=== PATIENT | male | born 1955 | race Caucasian/White ===

== ENCOUNTER 2017-12-04 21:19 | Emergency (ER) | payer BC ==
[2017-12-04] MEDS ORDERED: Albuterol 8 GM Inhaler INH ONE (22:40)
[2017-12-04] MEDS ORDERED: Azithromycin 250 MG Tab ONE (22:40)
--- NOTE | 2017-12-05 04:49 | ER ---
HISTORY OF PRESENT ILLNESS: The patient is a 62-year-old male who comes into the ER with a chief complaint of generally not feeling well. He notes he has a head cold. He has a headache. He has neck pain. He has body aches. He notes he has had a fever off and on. He has had some weight loss, some night sweats. He has a cough. Cough is nonproductive. He does note some shortness of breath. He does not have any chest pain. His pain, he describes as a 3-4/10. ALLERGIES: BACTRIM. CURRENT MEDICATIONS: None. PHYSICAL EXAMINATION: VITAL SIGNS: His temperature is 98.6, pulse is 86, respirations are 16, blood pressure is 122/80, O2 saturation is 98% on room air. HEENT: TMs appear to have a perforation on the right. The left appears normal. Throat is normal. NECK: Supple. No nodes. No bruits. HEART: Regular sinus rhythm without murmur. LUNGS: The patient has a nearly absent breath sounds bilaterally. No wheezing. No crackles. Really nothing for breath sounds. ABDOMEN: Soft, nontender. No hepatosplenomegaly. Normal breath. Normal bowel sounds. EXTREMITIES: No clubbing, cyanosis, or edema. NEUROLOGIC: Nonfocal. LABS: White count is 14.8, red blood cells are 4.06, hematocrit is a little low at 36.8, neutrophils are 75%. Sodium is 134. The remainder of his electrolytes are within normal limits. His BUN is 17, creatinine is 1.33. Liver functions are a little low. His AST is 23, his ALT is 22, alkaline phosphatase is 140, albumin is 2.9, globulin is 4.4. UA is negative, specific gravity is 1.005. ASSESSMENT: Possible bronchitis versus a viral illness. PLAN: We will put the patient on some azithromycin 500 mg p.o. daily. I have also given him a Ventolin metered dose inhaler for what appears to be an emphysematous lungs, I have reviewed how to use it. The patient will take it with him and if it is helpful, he will come back and be seen in the clinic for refill. I have encouraged him to return to clinic if he is not getting better over the next several days, or if he develops any worsening symptoms. Chest x-ray was also obtained, which was negative for any acute process. RD/MODL /[id number]
--- NOTE | 2017-12-05 08:36 | CR ---
DATE OF SERVICE: 12/04/17 CLINICAL DATA: cough,sob PA AND LATERAL CHEST: Comparison is made to a prior exam dated 09/25/09. The heart size is normal. The lungs are hyperexpanded. There are foci of increased density in the left retrocardiac region and right lung base laterally consistent with infiltrate or atelectasis. Pneumonia should be considered. A density in the right lung base laterally does appear to be somewhat mass-like. Followup PA and lateral chest x -ray after treatment is recommended to confirm stability. No pneumothorax. No pleural effusions. [id number] MTDD
--- NOTE | 2018-01-14 15:57 | ER ---
ADDENDUM: FINAL DIAGNOSIS: Bronchitis. RD/MODL /[id number]
== END 2017-12-04 22:55 | disposition home or self-care (01) ==
LOC: LB.ED 21:19
DX: J40 Bronchitis, not specified as acute or chronic (principal); Z88.1 Allergy status to other antibiotic agents
CPT/HCPCS: 36415; 71046; 80053; 81001; 85025; 99283; A9270

== ENCOUNTER 2017-12-10 15:58 | Emergency (ER) | payer BC ==
--- NOTE | 2017-12-10 16:32 | EDM.PDOC ---
ED HPI GENERAL MEDICAL PROBLEM - General Stated Complaint: DIZZINESS, FAINTING Time Seen by Provider: 12/10/17 16:05 Source of Information: Reports: Patient History Limitations: Reports: No Limitations - History of Present Illness INITIAL COMMENTS - FREE TEXT/NARRATIVE: According to patient he was at work today and was standing, when he felt weak and dizzy, soon started to have blurring of his vision. So patient sat down on the chair and the feeling went away.The whole episodes lasted for few minutes. No LOC or confusion.No nausea or vomiting. no chest pain or shortness of breath. Pt was seen for cough last week and was started on azithromycin 500mg daily for 3 days. Pt was done with his antibiotics on Tuesday. no fever or chills. no abdominal pain. no other symptoms. Onset: Today Onset Date: 12/10/17 Onset Time: 15:30 Severity: Mild - Related Data Allergies Allergy/AdvReac Type Severity Reaction Status Date / Time sulfamethoxazole Allergy Cannot Verified 12/04/17 21:33 [From Bactrim] Remember trimethoprim [From Bactrim] Allergy Cannot Verified 12/04/17 21:33 Remember Home Meds: Home Meds NK [No Known Home Meds] 12/04/17 [History] Past Medical History HEENT History: Reports: Impaired Vision Cardiovascular History: Reports: Arrhythmia, Other (See Below) Other Cardiovascular History: Reports past Hx of PVC's. - Infectious Disease History Infectious Disease History: Reports: Chicken Pox Social & Family History - Family History Family Medical History: Noncontributory - Caffeine Use Caffeine Use: Reports: Coffee ED ROS GENERAL - Review of Systems Review Of Systems: See Below Constitutional: Reports: Weakness. Denies: Fever, Chills, Fatigue, Night Sweats , Diaphoresis, Decreased Appetite HEENT: Denies: Eye Pain, Rhinitis, Sinus Problem, Throat Pain, Throat Swelling Respiratory: Denies: Shortness of Breath, Wheezing, Cough, Sputum Cardiovascular: Reports: Lightheadedness. Denies: Chest Pain, Syncope GI/Abdominal: Denies: Abdominal Pain, Nausea, Vomiting Musculoskeletal: Denies: Joint Pain, Joint Swelling Skin: Denies: Bruising, Pruritis, Rash Neurological: Reports: Dizziness. Denies: Confusion, Headache, Numbness, Seizure, Syncope, Tingling, Tremors, Weakness ED EXAM, GENERAL - Physical Exam Exam: See Below Exam Limited By: No Limitations General Appearance: Alert, WD/WN, No Apparent Distress Eye Exam: Bilateral Eye: EOMI, PERRL Ears: Normal External Exam, Normal Canal, Hearing Grossly Normal, Normal TMs Ear Exam: Bilateral Ear: Auricle Normal, Canal Normal, TM normal Nose: Normal Inspection, Normal Mucosa, No Blood Throat/Mouth: Normal Inspection, Normal Lips, Normal Teeth, Normal Gums, Normal Oropharynx, Normal Voice, No Airway Compromise Head: Atraumatic, Normocephalic Neck: Normal Inspection, Supple, Non-Tender, Full Range of Motion Respiratory/Chest: No Respiratory Distress, Lungs Clear, Normal Breath Sounds, No Accessory Muscle Use, Chest Non-Tender Cardiovascular: Normal Peripheral Pulses, Regular Rate, Rhythm, No Edema, No Gallop, No JVD, No Murmur, No Rub GI/Abdominal: Normal Bowel Sounds, Soft, Non-Tender, No Organomegaly, No Distention, No Abnormal Bruit, No Mass Extremities: Normal Inspection, Normal Range of Motion, Non-Tender, Normal Capillary Refill, No Pedal Edema EKG INTERPRETATION EKG Date: 12/10/17 Rate (Beats/Min): 71 [place]: Normal P-Wave: Present QRS: Normal ST-T: Normal QT: Prolonged EKG Interpretation Comments: occasional PVCs. Course - Vital Signs Text/Narrative:: Pt's description of symptoms appear like he has a short episode of black out, which resolved with him sitting. the episode was not asso with sweating, chest pain, shortness of breath or palpitations. the whole episode lasted for few seconds. His EKG does show Prolonged AT interval which might be related to his recent use of azithromycin. His CBC, CMP are normal. His troponin is negative. Pt is asymptomatic. Pt reassured that he had nonspecific episode of vasovagal attack. all his lab work is normal. advised to drink plenty of fluids. Followup in clinic in 1 wk for recheck and repeat EKG. - Orders/Labs/Meds Orders: Active Orders 24 hr Category Date Time Status EKG Documentation Completion [RC] ASDIRECTED Care 12/10/17 16:22 Active Labs: Laboratory Tests 12/10/17 12/10/17 Range/Units 16:21 16:21 WBC 7.9 D (4.0-11.0) K/uL RBC 4.14 L (4.50-6.50) M/uL Hgb 13.2 (13.0-18.0) g/dL Hct 38.4 L (40.0-54.0) % MCV 93 (76-96) fL MCH 31.9 (27.0-32.0) pg MCHC 34.4 (31.0-35.0) g/dL RDW 13.8 (11.0-16.0) % Plt Count 340 (150-400) K/uL MPV 9.3 (6.0-10.0) fL Neut % (Auto) 69.5 (45.0-70.0) % Lymph % (Auto) 21.6 (20.0-40.0) % [place] % (Auto) 6.3 (3.0-10.0) % Eos % (Auto) 2.1 (1.0-5.0) % Baso % (Auto) 0.5 (0.0-0.5) % Neut # (Auto) 5.51 (2.00-7.50) K/uL Lymph # (Auto) 1.71 (1.50-4.00) K/uL [place] # (Auto) 0.50 (0.20-0.80) K/uL Eos # (Auto) 0.17 (0.04-0.40) K/uL Baso # (Auto) 0.04 (0.02-0.10) K/uL Sodium 135 L (136-145) mmol/L Potassium 3.9 (3.5-5.1) mmol/L Chloride 100 (98-107) mmol/L Carbon Dioxide 24.9 (21.0-32.0) mmol/L Anion Gap 14.0 (5.0-15.0) mmol/L BUN 13 D (8-26) mg/dL Creatinine 1.30 (0.70-1.30) mg/dL Est Cr Clr Drug Dosing TNP Estimated GFR (MDRD) 56 L (>60) MLS/MIN BUN/Creatinine Ratio 10.0 (6-25) Glucose 206 H D (74-100) mg/dL Calcium 8.8 (8.5-10.1) mg/dL Total Bilirubin 0.6 (0.0-1.0) mg/dL AST 15 (15-37) U/L ALT 20 (12-78) U/L Alkaline Phosphatase 111 (46-116) U/L Troponin I < 0.017 (0.000-0.060) ng/mL Total Protein 6.8 (6.4-8.2) g/dL Albumin 2.9 L (3.4-5.0) g/dL Globulin 3.9 (2.2-4.2) g/dL Albumin/Globulin Ratio 0.7 L (0.8-2.0) Departure - Departure Time of Disposition: 17:30 Disposition: Home, Self-Care 01 Condition: Good Clinical Impression: Vasovagal episode - Discharge Information Referrals: PCP,None [Primary Care Provider] - Additional Instructions: His CBC, CMP are normal. His troponin is negative. Pt is asymptomatic. Pt reassured that he had nonspecific episode of vasovagal attack. all his lab work is normal. advised to drink plenty of fluids. Followup in clinic in 1 wk for recheck and repeat EKG. - Problem List & Annotations (1) Vasovagal episode SNOMED Code(s): 532678921 Code(s): R55 - SYNCOPE AND COLLAPSE Status: Acute Current Visit: Yes - Problem List Review Problem List Initiated/Reviewed/Updated: Yes - My Orders Last 24 Hours: My Active Orders 12/10/17 16:22 EKG Documentation Completion [RC] ASDIRECTED - Assessment/Plan Last 24 Hours: My Active Orders 12/10/17 16:22 EKG Documentation Completion [RC] ASDIRECTED Assessment:: vasovagal episode Plan: Pt's description of symptoms appear like he has a short episode of black out, which resolved with him sitting. the episode was not asso with sweating, chest pain, shortness of breath or palpitations. the whole episode lasted for few seconds. His EKG does show Prolonged AT interval which might be related to his recent use of azithromycin. His CBC, CMP are normal. His troponin is negative. Pt is asymptomatic. Pt reassured that he had nonspecific episode of vasovagal attack. all his lab work is normal. advised to drink plenty of fluids. Followup in clinic in 1 wk for recheck and repeat EKG.
== END 2017-12-10 17:25 | disposition home or self-care (01) ==
LOC: LB.ED 15:58
DX: R55 Syncope and collapse (principal); Z88.2 Allergy status to sulfonamides; Z88.1 Allergy status to other antibiotic agents
CPT/HCPCS: 36415; 80053; 84484; 85025; 93005; 99284-25

== ENCOUNTER 2022-07-07 15:27 | Emergency (ER) | payer BC ==
[2022-07-07] MEDS: Sodium Chloride 0.9% 1,000 ML IV ONE (15:49)
[2022-07-07] MEDS: Sodium Chloride 0.9% 500 ML IV ONE (16:22)
[2022-07-07 16:24] VITALS: PULSE 88
[2022-07-07] MEDS: Sodium Chloride 0.9% 1,000 ML IV SCH (16:41)
[2022-07-07 19:20] VITALS: BP 125/70
== END 2022-07-07 18:50 | disposition home or self-care (01) ==
LOC: LB.ED 15:27
DX: R55 Syncope and collapse (principal); Z88.1 Allergy status to other antibiotic agents
CPT/HCPCS: 36415; 71045; 80053; 80307; 81001; 82947; 84484; 85025; 93242; 96360; 96361; 99285-25; A0425; A0429; J7030

== ENCOUNTER 2023-04-22 16:34 | Emergency (ER) | payer BC ==
[2023-04-22] MEDS ORDERED: Ketorolac 60 MG/2 ML SDV IM ONE (16:45)
[2023-04-22] MEDS ORDERED: Ketorolac 60 MG/2 ML SDV ONE (16:47)
[2023-04-22] MEDS ORDERED: Acetaminophen/HYDROcodone 325-5 MG Tab ONE (17:30)
== END 2023-04-22 17:45 | disposition home or self-care (01) ==
LOC: LB.ED 16:34
DX: S49.91XA Unspecified injury of right shoulder and upper arm, initial encounter (principal); S40.011A Contusion of right shoulder, initial encounter; J44.9 Chronic obstructive pulmonary disease, unspecified; Z88.2 Allergy status to sulfonamides; Z88.8 Allergy status to other drugs, medicaments and biological substances; W22.8XXA Striking against or struck by other objects, initial encounter
CPT/HCPCS: 73030-RT; 96372; 99283; A9270-GY; J1885

== ENCOUNTER 2023-07-06 15:38 | Emergency (ER) | payer BC ==
[2023-07-06] MEDS ORDERED: Diphtheria,Pertussis(Acell),Tetanus Vaccine 0.5 ML Syringe IM ONE (15:53)
[2023-07-06 16:06] LABS: BASOPHILS ABSOLUTE AUTO 0.05 K/uL (0.02-0.10); BASOPHILS PERCENT AUTO 0.6 % (0.0-0.5); EOSINOPHILS PERCENT AUTO 3.7 % (1.0-5.0); HEMATOCRIT 41.8 % (40.0-54.0); HEMOGLOBIN 14.3 g/dL (13.0-18.0); LYMPHOCYTES ABSOLUTE AUTO 2.76 K/uL (1.50-4.00); LYMPHOCYTES PERCENT AUTO 34.1 % (20.0-40.0); MEAN CORPUSCULAR HEMOGLOBIN 32.5 pg (27.0-32.0); MEAN CORPUSCULAR HGB CONC 34.2 g/dL (31.0-35.0); MEAN CORPUSCULAR VOLUME 95 fL (76-96); MEAN PLATELET VOLUME 9.7 fL (6.0-10.0); MONOCYTES ABSOLUTE AUTO 0.78 K/uL (0.20-0.80); MONOCYTES PERCENT AUTO 9.6 % (3.0-10.0); PLATELET COUNT,PLT 239 K/uL (150-400); RED CELL DISTRIBUTION WIDTH 13.1 % (11.0-16.0); WHITE BLOOD CELL COUNT,WBC 8.1 K/uL (4.0-11.0)
[2023-07-06 16:21] LABS: A/G RATIO 0.9 (0.8-2.0); ALBUMIN 3.3 g/dL (3.4-5.0); ANION GAP 14.3 mmol/L (5.0-15.0); BILIRUBIN TOTAL 0.5 mg/dL (0.0-1.0); BUN/CREATININE RATIO 12.2 (6-25); CALCIUM 8.5 mg/dL (8.5-10.1); CARBON DIOXIDE,CO2 24.6 mmol/L (21.0-32.0); CREATININE 1.31 mg/dL (0.70-1.30); EST CRCL DRUG DOSING (CG) 55.08 mL/min; POTASSIUM,K 3.9 mmol/L (3.5-5.1); PROTEIN TOTAL,TP 7.1 g/dL (6.4-8.2)
[2023-07-06] MEDS ORDERED: Lidocaine 1% with EPINEPHrine 1:100,000 50 ML MDV INFILT ONE (16:59)
[2023-07-06] MEDS ORDERED: Cephalexin 500 MG Cap ONE (17:00)
[2023-07-06] MEDS ORDERED: Bacitracin Oint 1 GM U/D Packet TOP ONE (17:00)
[2023-07-06] MEDS ORDERED: Lidocaine 1% with EPINEPHrine 1:100,000 20 ML MDV INJECT ONE (17:13)
== END 2023-07-06 17:05 | disposition home or self-care (01) ==
LOC: LB.ED 15:38
DX: S01.01XA Laceration without foreign body of scalp, initial encounter (principal); S01.81XA Laceration without foreign body of other part of head, initial encounter; F10.10 Alcohol abuse, uncomplicated; R55 Syncope and collapse; Z88.2 Allergy status to sulfonamides; J44.9 Chronic obstructive pulmonary disease, unspecified; X58.XXXA Exposure to other specified factors, initial encounter; Z23 Encounter for immunization
CPT/HCPCS: 12004; 36415; 80053; 80307; 83735; 85025; 90471; 90715; 93005; 99284-25; A9270-GY

== ENCOUNTER 2024-04-16 18:03 | Emergency (ER) | payer BC ==
[2024-04-16] MEDS ORDERED: Sodium Chloride 0.9% 10 ML Syringe FLUSH PRN (18:20)
[2024-04-16] MEDS: Iopamidol 612 MG/ML 100 ML Bottle IV SCH (18:38)
[2024-04-16] MEDS: Sodium Chloride 0.9% 50 ML SDV FLUSH ONE (18:38)
[2024-04-16 18:55] LABS: HEMATOCRIT 37.4 % (40.0-54.0); HEMOGLOBIN 13.3 g/dL (13.0-18.0); MEAN CORPUSCULAR HEMOGLOBIN 33.6 pg (27.0-32.0); MEAN CORPUSCULAR HGB CONC 35.6 g/dL (31.0-35.0); MEAN PLATELET VOLUME 9.2 fL (6.0-10.0); RED BLOOD CELL COUNT 3.96 M/uL (4.50-6.50); WHITE BLOOD CELL COUNT,WBC 5.9 K/uL (4.0-11.0)
[2024-04-16 19:13] LABS: ALBUMIN 2.8 g/dL (3.4-5.0); BILIRUBIN TOTAL 0.5 mg/dL (0.0-1.0); CALCIUM 8.1 mg/dL (8.5-10.1); CARBON DIOXIDE,CO2 26.4 mmol/L (21.0-32.0); CREATININE 1.08 mg/dL (0.70-1.30); EST CRCL DRUG DOSING (CG) 69.07 mL/min; POTASSIUM,K 3.4 mmol/L (3.5-5.1); PROTEIN TOTAL,TP 5.7 g/dL (6.4-8.2)
[2024-04-16] MEDS: Sodium Chloride 0.9% 1,000 ML IV SCH (19:15)
[2024-04-16] MEDS: Aspirin 81 MG Tab.Chew PO ONE (19:41)
== END 2024-04-16 20:30 | disposition home or self-care (01) ==
LOC: LB.ED 18:17
DX: S06.0X0A Concussion without loss of consciousness, initial encounter (principal); F10.129 Alcohol abuse with intoxication, unspecified; F17.210 Nicotine dependence, cigarettes, uncomplicated; J44.9 Chronic obstructive pulmonary disease, unspecified; Z79.82 Long term (current) use of aspirin; Z79.899 Other long term (current) drug therapy; Y90.7 Blood alcohol level of 200-239 mg/100 ml; Z88.2 Allergy status to sulfonamides; W01.190A Fall on same level from slipping, tripping and stumbling with subsequent striking against furniture, initial encounter; Y92.009 Unspecified place in unspecified non-institutional (private) residence as the place of occurrence of the external cause
CPT/HCPCS: 36415; 70450; 70496; 70498; 80053; 80307; 85027; 93005; 96360; 99284; A0425; A0429; A9270; J3490; J7030; Q9967

== ENCOUNTER 2024-09-09 01:25 | Emergency (ER) | payer BC ==
[2024-09-09] MEDS: Ketorolac 15 MG/ML SDV IVPUSH ONE (02:09)
[2024-09-09] MEDS ORDERED: Acetaminophen/HYDROcodone 325-5 MG Tab ONE (02:45)
== END 2024-09-09 02:55 | disposition home or self-care (01) ==
LOC: LB.ED 01:25
DX: S22.32XA Fracture of one rib, left side, initial encounter for closed fracture (principal); F17.210 Nicotine dependence, cigarettes, uncomplicated; Z88.2 Allergy status to sulfonamides; Z88.8 Allergy status to other drugs, medicaments and biological substances; W13.2XXA Fall from, out of or through roof, initial encounter; Y92.009 Unspecified place in unspecified non-institutional (private) residence as the place of occurrence of the external cause
CPT/HCPCS: 71046; 96374; 99283-25; 99284; A9270-GY; J1885

== ENCOUNTER 2024-10-29 15:12 | Emergency (ER) | payer MEDICARE ==
[2024-10-29] MEDS ORDERED: Sodium Chloride 0.9% 50 ML SDV FLUSH ONE (15:38)
[2024-10-29] MEDS ORDERED: Iopamidol 755 Mg/ML 100 ML Bottle IV SCH (15:45)
[2024-10-29] MEDS ORDERED: Sodium Chloride 0.9% 10 ML Syringe FLUSH PRN (17:03)
== END 2024-10-29 17:30 | disposition home or self-care (01) ==
LOC: LB.ED 15:12
DX: J90 Pleural effusion, not elsewhere classified (principal); S22.42XD Multiple fractures of ribs, left side, subsequent encounter for fracture with routine healing; J44.9 Chronic obstructive pulmonary disease, unspecified; Z87.891 Personal history of nicotine dependence; Z79.899 Other long term (current) drug therapy; Z88.2 Allergy status to sulfonamides; X58.XXXD Exposure to other specified factors, subsequent encounter
CPT/HCPCS: 71275; 93005; 99285

== ENCOUNTER 2024-10-30 10:26 | Emergency (ER) | payer MEDICARE | END 2024-10-30 12:15 | disposition home or self-care (01) | LOC: LB.ED 10:26 | DX: J90 Pleural effusion, not elsewhere classified (principal); J44.9 Chronic obstructive pulmonary disease, unspecified; F17.210 Nicotine dependence, cigarettes, uncomplicated; Z88.2 Allergy status to sulfonamides; Z88.8 Allergy status to other drugs, medicaments and biological substances | CPT/HCPCS: 32555; 71046; 87070; 87075; 87205; 99285-25 ==

== ENCOUNTER 2024-11-07 11:10 | Emergency (ER) | payer MEDICARE ==
[2024-11-07] MEDS ORDERED: Sodium Chloride 0.9% 10 ML Syringe FLUSH PRN (12:04)
[2024-11-07 12:26] LABS: MEAN CORPUSCULAR HEMOGLOBIN 32.4 pg (27.0-32.0); MEAN PLATELET VOLUME 9.5 fL (6.0-10.0); RED BLOOD CELL COUNT 4.32 M/uL (4.50-6.50); RED CELL DISTRIBUTION WIDTH 12.3 % (11.0-16.0); WHITE BLOOD CELL COUNT,WBC 7.6 K/uL (4.0-11.0)
[2024-11-07 13:02] LABS: ANION GAP 10.8 mmol/L (5.0-15.0); BUN/CREATININE RATIO 14.4 (6-25); CALCIUM 8.7 mg/dL (8.5-10.1); CARBON DIOXIDE,CO2 27.8 mmol/L (21.0-32.0); CREATININE 1.04 mg/dL (0.70-1.30); EST CRCL DRUG DOSING (CG) 61.91 mL/min; MAGNESIUM 1.6 mg/dL (1.8-2.4); POTASSIUM,K 4.6 mmol/L (3.5-5.1)
[2024-11-07] MEDS: Magnesium Sulfat/D5W 1GM/100ML 1 GM in Premix Bag 1 BAG IV ONE (13:33)
[2024-11-07] MEDS: LORazepam 2 MG/ML SDV ONE (13:48)
[2024-11-07] MEDS: Morphine 4 MG/ML VIAL ONE (13:48)
[2024-11-07] MEDS: LORazepam 2 MG/ML SDV IVPUSH ONE ×2 (13:48→15:17)
[2024-11-07] MEDS: Morphine 4 MG/ML VIAL IVPUSH ONE ×2 (13:49→15:15)
[2024-11-07] MEDS: Lidocaine 1% 5 ML VIAL INJECT ONE (15:24)
== END 2024-11-07 18:26 ==
LOC: LB.ED 11:10
DX: J93.9 Pneumothorax, unspecified (principal); J94.2 Hemothorax; F17.210 Nicotine dependence, cigarettes, uncomplicated; Z98.890 Other specified postprocedural states; Z88.2 Allergy status to sulfonamides
CPT/HCPCS: 32551; 32555; 36415; 71045; 71250; 80048; 83735; 83880; 85027; 87015; 87070; 87116; 87205; 87206; 96365; 96375; 96376; 99285; A0425; A0428; J2003; J2060; J2270; J3475

== ENCOUNTER 2024-11-21 23:38 | Emergency (ER) | payer MEDICARE ==
[2024-11-21] MEDS ORDERED: Sodium Chloride 0.9% 10 ML Syringe FLUSH PRN (23:57)
[2024-11-22 00:22] LABS: HEMATOCRIT 36.5 % (40.0-54.0); HEMOGLOBIN 12.6 g/dL (13.0-18.0); MEAN CORPUSCULAR HEMOGLOBIN 31.9 pg (27.0-32.0); MEAN CORPUSCULAR HGB CONC 34.5 g/dL (31.0-35.0); MEAN PLATELET VOLUME 9.1 fL (6.0-10.0); RED BLOOD CELL COUNT 3.95 M/uL (4.50-6.50); RED CELL DISTRIBUTION WIDTH 12.9 % (11.0-16.0); WHITE BLOOD CELL COUNT,WBC 12.2 K/uL (4.0-11.0)
[2024-11-22 00:34] LABS: BUN/CREATININE RATIO 10.7 (6-25); CALCIUM 8.6 mg/dL (8.5-10.1); CARBON DIOXIDE,CO2 28.1 mmol/L (21.0-32.0); CREATININE 1.03 mg/dL (0.70-1.30); EST CRCL DRUG DOSING (CG) 53.58 mL/min; POTASSIUM,K 4.1 mmol/L (3.5-5.1); TROPONIN I HIGH SENSITIVITY 8.8 pg/ml (<=60.4)
[2024-11-22] MEDS: Albuterol 0.083% 2.5 MG/3 ML Neb Soln NEB ONE (01:09)
[2024-11-22] MEDS: Morphine 4 MG/ML VIAL IVPUSH ONE (01:10)
[2024-11-22] MEDS: Ondansetron 4 MG/2 ML SDV IVPUSH ONE (01:21)
[2024-11-22] MEDS: Ketorolac 15 MG/ML SDV IVPUSH ONE (01:40)
== END 2024-11-22 02:12 | disposition home or self-care (01) ==
LOC: LB.ED 23:38
DX: R07.89 Other chest pain (principal); R07.81 Pleurodynia; Z88.2 Allergy status to sulfonamides; Z88.8 Allergy status to other drugs, medicaments and biological substances
CPT/HCPCS: 36415; 71045; 80048; 84484; 85027; 93005; 96374; 96375; 99285-25; A9270-GY; J1885; J2270; J2405

== ENCOUNTER 2024-11-22 20:00 | Emergency (ER) | payer MEDICARE ==
[2024-11-22] MEDS: Sodium Chloride 0.9% 1,000 ML IV SCH (20:05)
[2024-11-22] MEDS ORDERED: Naloxone 2 MG/2 ML Syringe IVPUSH PRN ×2 (20:14→21:24)
[2024-11-22] MEDS: HYDROmorphone 1 MG/ML Syringe IVPUSH ONE (20:18)
[2024-11-22] MEDS: Ketorolac 15 MG/ML SDV IVPUSH ONE (20:20)
[2024-11-22] MEDS: Ondansetron 4 MG/2 ML SDV IVPUSH ONE (20:22)
[2024-11-22 20:32] LABS: BASOPHILS ABSOLUTE AUTO 0.05 K/uL (0.02-0.10); BASOPHILS PERCENT AUTO 0.4 % (0.0-0.5); EOSINOPHILS ABSOLUTE AUTO 0.26 K/uL (0.04-0.40); EOSINOPHILS PERCENT AUTO 1.9 % (1.0-5.0); HEMATOCRIT 23.1 % (40.0-54.0); LYMPHOCYTES ABSOLUTE AUTO 1.55 K/uL (1.50-4.00); LYMPHOCYTES PERCENT AUTO 11.1 % (20.0-40.0); MEAN CORPUSCULAR HEMOGLOBIN 32.1 pg (27.0-32.0); MEAN CORPUSCULAR HGB CONC 33.8 g/dL (31.0-35.0); MEAN CORPUSCULAR VOLUME 95 fL (76-96); MEAN PLATELET VOLUME 9.1 fL (6.0-10.0); MONOCYTES ABSOLUTE AUTO 1.17 K/uL (0.20-0.80); MONOCYTES PERCENT AUTO 8.4 % (3.0-10.0); NEUTROPHILS ABSOLUTE AUTO 10.98 K/uL (2.00-7.50); NEUTROPHILS PERCENT AUTO 78.2 % (45.0-70.0); PLATELET COUNT,PLT 257 K/uL (150-400); RED BLOOD CELL COUNT 2.43 M/uL (4.50-6.50); RED CELL DISTRIBUTION WIDTH 12.8 % (11.0-16.0)
[2024-11-22 20:39] LABS: HEMOGLOBIN 7.8 g/dL (13.0-18.0)
[2024-11-22 20:50] LABS: ANION GAP 10.7 mmol/L (5.0-15.0); BLOOD UREA NITROGEN,BUN 17 mg/dL (8-26); BUN/CREATININE RATIO 12.5 (6-25); C-REACTIVE PROTEIN 86.5 mg/L (<5.0); CALCIUM 7.5 mg/dL (8.5-10.1); CARBON DIOXIDE,CO2 25.3 mmol/L (21.0-32.0); CHLORIDE,CL 104 mmol/L (98-107); CREATININE 1.36 mg/dL (0.70-1.30); ESTIMATED GFR 57 mL/min (>60); GLUCOSE RANDOM 216 mg/dL (74-100); LIPASE 17 U/L (16-77); SODIUM,NA 136 mmol/L (136-145); TROPONIN I HIGH SENSITIVITY 8.8 pg/ml (<=60.4)
[2024-11-22] MEDS: Sodium Chloride 0.9% 50 ML SDV FLUSH ONE (20:50)
[2024-11-22] MEDS: Iopamidol 755 Mg/ML 100 ML Bottle IV SCH (20:50)
[2024-11-22] MEDS ORDERED: fentaNYL 100 MCG/2 ML SDV IVPUSH PRN (21:24)
[2024-11-22] MEDS: Ketorolac 30 MG/ML SDV IVPUSH ONE (23:02)
[2024-11-23] MEDS ORDERED: Sodium Chloride 0.9% 10 ML Syringe FLUSH PRN (00:16)
[2024-11-23] MEDS: fentaNYL 100 MCG/2 ML SDV IVPUSH PRN ×2 (00:40→02:45)
[2024-11-23] MEDS ORDERED: Morphine 2 MG/ML SYRINGE IVPUSH PRN (03:54)
[2024-11-23] MEDS: Ondansetron 4 MG/2 ML SDV IVPUSH ONE (04:14)
== END 2024-11-23 04:28 | disposition expired ==
LOC: LB.ED 20:00 → SUPCPDRO 20:00 → LB.ED 11-23 04:28
DX: I71.33 Infrarenal abdominal aortic aneurysm, ruptured (principal); J44.9 Chronic obstructive pulmonary disease, unspecified; F17.200 Nicotine dependence, unspecified, uncomplicated; Z88.8 Allergy status to other drugs, medicaments and biological substances; Z79.899 Other long term (current) drug therapy
CPT/HCPCS: 36415; 51702; 71260; 74177; 80048; 83690; 84484; 85025; 86140; 96361; 96374; 96375; 96376; 99291-25; 99292; A0425; A0429; J1171; J1885; J2405; J3010; J3490; J7030; Q9967